=== PATIENT | male | born 1940 | race Native Hawaiian/Other Pacific Islander ===

== ENCOUNTER 2023-01-12 22:22 | Emergency (ER) | payer OTHER ==
[~2023-01-12] VITALS: Ht 180.3 cm; Wt 91.2 kg
[~2023-01-12 22:22] MED LIST: ASPIR-LOW81 MG OR; ASPIRIN81 M1 PO; BENICAR20 MG PO; CARV6.25 PO; CLOP75TA2 PO; LANTUS100 MG/ML SC; MOBIC7.5 M1 PO; PREVACID30 MG OR; RANO500T PO; VICTOZA18 MG/3 ML SC
[2023-01-12 22:38] VITALS: TEMP 98.5
[2023-01-13 01:08] VITALS: BP 123/68
== END 2023-01-13 01:08 | disposition home or self-care (01) ==
LOC: ED 22:22
DX: S30.0XXA Contusion of lower back and pelvis, initial encounter (principal); W19.XXXA Unspecified fall, initial encounter
CPT/HCPCS: 96372; 99284; J1100